=== PATIENT | male | born 1965 | race Caucasian/White ===

== ENCOUNTER 2017-11-30 11:06 | Observation (INO) | payer OTHER, SELFPAY ==
[2017-11-30] VITALS (9 sets, daily range): BP systolic 134–188; BP diastolic 68–101; PULSE 6–70; RESP 13–17; TEMP 36.7–37.2; O2SAT 97–100; BMI 27.2; BMI 26.7
--- NOTE | 2017-11-30 11:24 | NURSING ---
NO OLD EKGS
[2017-11-30] MEDS: Aspirin 81 MG TAB.CHEW 324 MG PO (11:28)
[2017-11-30] MEDS: 0.9% Normal Saline 1,000 ML 150 ML IV ×3 (11:30→22:25)
[2017-11-30 11:39] LABS: Absolute Lymphocyte Count 1.55 X10^3/ul (0.83-4.51); Absolute Neutrophil Count 6.9 X10^3/uL (2.0-7.7); Basophil# 0.03 X10^3/uL; Basophil% 0.3 % (0-1); Eosinophil# 0.22 X10^3/uL; Eosinophils% 2.3 % (0-5); Hematocrit 45.6 % (40-54); Hemoglobin 15.2 g/dl (13.0-16.5); Lymphocyte # 1.55 X10^3/ul (4.0); Lymphocyte % 16.5 % (19-41); Mean Corp Hgb Conc 33.3 g/gl (32-36); Mean Corpuscular Hgb 29.8 pg (27.0-32.0); Mean Corpuscular Volume 89.4 fL (80-94); Mean Platelet Vol. 9.4 fl (6.2-12.0); Monocyte# 0.64 X10^3/uL; Monocyte% 6.8 % (0-10); Neutrophil # 6.91 X10^3/uL (2.7-7.7); Neutrophil % 73.9 % (47-70); Platelet Count 227 K/mm3 (150-450); RBC Distribution Width CV 12.6 % (11.6-14.6); RBC Distribution Width SD 40.6 fl (35.1-43.9); White Blood Count 9.4 K/mm3 (4.4-11.0)
[2017-11-30 11:40] LABS: POSITIVE COUNT NO; POSITIVE DIFFERENTIAL NO; POSITIVE MORPHOLOGY NO
[2017-11-30 11:58] LABS: Anion Gap 5 (5-15); BUN 13 mg/dL (7-18); BUN/Creat Ratio 13.2 RATIO (10-20); Calcium,Total 8.8 mg/dL (8.5-10.1); Chloride 104 mmol/L (98-107); Creatinine, Serum 0.99 mg/dL (0.70-1.30); EST Glomerular Filtration Rate 85 mL/min (>60); Est Glom Filt Rate - Afr Amer 102 mL/min (>60); Estimated Creatinine Clearance 107.16 ml/min; Glucose 124 mg/dL (74-106); Sodium Level 139 mmol/L (136-145)
--- NOTE | 2017-11-30 12:30 | ED.VISSUMM ---
- ER Visit Summary Date of Service: 11/30/17 Chief Complaint: [Palpitations and chest discomfort] History of Present Illness: The patient is a 52 M [presents the emergency department complaint of palpitations that started around 8 AM while at work today. Patient states that he was just walking when he suddenly had the onset of severe fatigue and developed cold sweats and felt short of breath. Patient had a mild heaviness/fullness in his chest. Symptoms lasted about 30 seconds or so and then resolved. Patient then had another episode of shortness of breath after picking up a battery and starting to walk. Patient has not had symptoms like this before. He currently denies any chest pain. He denies nausea or vomiting. He denies any radiation of the chest discomfort.] Physical Examination: [HEENT-PERRLA, EOMI. Cranial nerves II through XII grossly intact. TMs clear. Mucous membranes moist. No adenopathy. Cardiovascular-regular rate and rhythm without murmur or ectopy Lungs-clear to auscultation, chest wall stable without crepitus or subcu emphysema Abdomen-normoactive bowel sounds, soft, nontender, no rebound or rigidity, no peritoneal signs. Extremities-intact ?4, normal range of motion, normal pulses, atraumatic] Test Results: [EKG obtained on arrival showed a sinus rhythm with a ventricular rate of 61 bpm with no acute ST segment changes. CBC with differential is normal. Chemistries were normal. Troponin was less than 0.015. Chest x-ray showed nothing acute.] Emergency Department Course and Treatment: [Patient received aspirin in the emergency department] Treatment Plan: [Admit for further workup and evaluation] Disposition: [Admit] Impression: [Chest pain-rule out acute coronary syndrome Palpitations] This note was generated with [employer] dictation software. It may contain incorrect words, spelling, and punctuation that were not noted in review of the chart prior to signing ED Disposition - Plan for ED Patient: Chief Complaint: Palpitations Referrals: Mulugeta Tom DO [Primary Care Provider] -
--- NOTE | 2017-11-30 12:54 | NURSING ---
[address]agan obs
--- NOTE | 2017-11-30 13:15 | PCM.HP.STD ---
Problem List (1) Chest pain Status: Acute (2) Essential (primary) hypertension Status: Chronic (3) Depression Status: Chronic History of Present Illness Date of Admission: 11/30/17 Chief Complaint: Chest pain The patient is a 52 year old M past medical history cigar of hypertension currently not on any antihypertensives who presented with chest discomfort. Patient symptoms started at [facility] when he felt exhausted and fatigue. He rested and felt some relief. He had a recurrence at this time his fatigue was associated with episodes of heart fluttering. He later developed chest discomfort in the left upper chest broke out into a cold sweat and felt faint. He called the squad and was brought to the emergency department. Initial set of cardiac enzymes obtained in the ED came back negative. Patient was admitted to monitored bed for further management. Past Medical History Past Medical History (Chronic Problems): Chronic Problems Essential (primary) hypertension (Chronic) Depression (Chronic) Allergies ibuprofen Allergy (Verified 11/30/17 11:08) Angioedema Home Medications: Ambulatory Orders Medication Instructions Recorded Diclofenac [Voltaren] 100 mg PO DAILY 11/30/17 Escitalopram Oxalate [Lexapro] 10 mg PO DAILY 11/30/17 Smoking Status: Never smoker - *Family History Paternal History Items: Heart Disease Review of Systems Constitutional: Reports: Fatigue. Denies: Anorexia, Chills, Fever, Night Sweats, Weight Change HEENT: Denies: Head Aches, Sinus Congestion, Sinus Drainage Cardiovascular: Reports: Chest Pain, Palpitations. Denies: Orthopnea, Paroxysmal Noc. Dyspnea Respiratory: Denies: Cough, Shortness of breath at rest, Shortness of breath upon exertion, Sputum production Gastrointestinal: Denies: Abdominal Pain, Hematemesis, Hematochezia, Nausea, Melena, Vomiting Genitourinary: Denies: Dysuria, Frequency, Hematuria, Urgency Musculoskeletal: Denies: Joint Pain, Joint Tenderness Skin: Denies: Rash Neurological: Denies: Focal weakness, Numbness, Tingling Psychiatric: Denies: Homicidal Ideations, Suicidal Ideations Hematologic/ Lymphatic: Denies: Easy Bruising, Easy Bleeding VTE Information - Inpt Only VTE Present on Admission: No VTE Mechan Device Prophylaxis: Knee High EMERSON Hose VTE Pharm Prophylaxis ordered?: Yes Patient Problems: Active and Suspected Problems Chest pain (Acute) Objective: GENERAL: cooperative and in no apparent distress. HEENT: Clear conjunctiva, moist oral mucosa NECK; supple, normal thyroid, no distended JVD. CHEST: Clear to auscultation bilaterally, HEART: Regular S1 S2, no audible murmurs ABDOMEN: soft, non-tender, normoactive bowel sounds, RECTAL: deferred EXTREMITIES: No edema, no clubbing, no cyanosis. MANAGER IT SECURITY: Awake; no lateralizing signs. SKIN: No Rash - Physical Exam Vital Signs Temp Pulse Resp BP Pulse Ox 99.0 F 53 L 15 148/96 H 99 11/30/17 11:08 11/30/17 12:45 11/30/17 12:45 11/30/17 12:45 11/30/17 12:45 Oxygen Flow Rate (L/min) 2 Oxygen Delivery Method Nasal Cannula Weight: 101.5 kg Body Mass Index (BMI) 27.2 Laboratory Tests Past 24 Hrs 11/30/17 11/30/17 11:20 11:20 WBC 9.4 RBC 5.10 Hgb 15.2 Hct 45.6 MCV 89.4 MCH 29.8 MCHC 33.3 RDW 12.6 RDW Differential 40.6 Plt Count 227 MPV 9.4 Immature Gran % (Auto) 0.200 Neut % (Auto) 73.9 H Lymph % (Auto) 16.5 L Wilkes % (Auto) 6.8 Eos % (Auto) 2.3 Baso % (Auto) 0.3 Absolute Neuts (auto) 6.9 Absolute Lymphs (auto) 1.55 Total Counted Not Reportable Sodium 139 Potassium 4.0 Chloride 104 Carbon Dioxide 30.0 Anion Gap 5 BUN 13 Creatinine 0.99 Estim Creat Clear Calc 107.16 Est GFR (MDRD) Af Amer 102 Est GFR (MDRD) Non-Af 85 BUN/Creatinine Ratio 13.2 Glucose 124 H Calcium 8.8 Troponin I < 0.015 Assessment/Plan All Active Problems Chest pain (Acute) Patient is a 52-year-old gentleman presenting with atypical chest pain 1. Chest Pain: Placed on a monitored bed; Plan is to rule out for Myocardial infarction with serial cardiac enzymes and EKGs. If negative, rule out Myocardial Ischemia with nuclear medicine stress test. 2. Depression patient is on SSRI 3. Hypertension currently not on any antiplatelet medications however patient systolic blood pressure upon admission was greater than 180 plan is to initiate antihypertensive medications prior to discharge 4. DVT prophylaxis SC Lovenox Code Visit OBSV E&M: 88743 Initial observation care L3
[2017-11-30] MEDS: amLODIPine 10 MG Tablet PO (17:07)
[2017-11-30] MEDS: 0.9% NaCl Peripheral Flush Adult/Peds IV (22:25)
[2017-12-01 03:00] VITALS: PULSE 50
[2017-12-01 04:30] VITALS: BP 122/71; PULSE 53; RESP 16; TEMP 36.7; O2SAT 96
[2017-12-01 04:39] LABS: Partial Thromboplast Time 25.2 Seconds (24.1-36.2); Prothrombin Time (Protime)PT. 12.8 SECONDS (11.7-14.9)
[2017-12-01 04:41] LABS: Hematocrit 42.9 % (40-54); Hemoglobin 14.9 g/dl (13.0-16.5); Mean Corp Hgb Conc 34.7 g/gl (32-36); Mean Corpuscular Hgb 30.9 pg (27.0-32.0); Mean Platelet Vol. 9.3 fl (6.2-12.0); Platelet Count 233 K/mm3 (150-450); RBC Distribution Width CV 12.7 % (11.6-14.6); RBC Distribution Width SD 40.9 fl (35.1-43.9); Red Blood Count 4.82 M/mm3 (4.6-6.2); White Blood Count 8.7 K/mm3 (4.4-11.0)
[2017-12-01 04:42] LABS: Scan Indicated on CBC? Y/N NO
[2017-12-01 04:50] LABS: Anion Gap 8 (5-15); BUN 13 mg/dL (7-18); BUN/Creat Ratio 13.9 RATIO (10-20); Calcium,Total 8.1 mg/dL (8.5-10.1); Chloride 109 mmol/L (98-107); Creatinine, Serum 0.94 mg/dL (0.70-1.30); EST Glomerular Filtration Rate 90 mL/min (>60); Est Glom Filt Rate - Afr Amer 109 mL/min (>60); Estimated Creatinine Clearance 112.86 ml/min; Glucose 112 mg/dL (74-106); Potassium 4.2 mmol/L (3.5-5.1); Sodium Level 143 mmol/L (136-145)
[2017-12-01] MEDS: 0.9% Normal Saline 1,000 ML 150 ML IV (05:07)
[2017-12-01] MEDS: Aspirin E.C. 81 MG Tablet PO (05:07)
--- NOTE | 2017-12-01 05:55 | NURSING ---
All charting completed by SN Christian reviewed by this RN. This RN agrees with documentation - 12/01
[2017-12-01 06:11] VITALS: PULSE 56
[2017-12-01 10:30] VITALS: BP 142/72; PULSE 61; RESP 16; TEMP 36.6; O2SAT 98
[2017-12-01] MEDS: Escitalopram Oxalate 10 MG Tablet PO (10:46)
[2017-12-01] MEDS: amLODIPine 10 MG Tablet PO (10:47)
[2017-12-01 11:53] VITALS: PULSE 50
--- NOTE | 2017-12-01 13:01 | STRESSREP ---
Stress Test Report Date: 12/01/2017 Procedure: Exercise tolerance test/imaging study Indications: Chest pain Consent: Per the patient Procedure: The patient exercised on a Gavino protocol for 11 minutes 25 seconds completing Stage III and 2 minutes 25 seconds of Stage IV achieving a peak heart rate of 155 bpm (92 % predicted maximal heart rate) with a peak blood pressure 182/64 mmHg and a peak MET capacity of 13 METs. The baseline ECG demonstrated sinus bradycardia. The peak exercise ECG demonstrated somatic/motion artifact with no obvious ECG changes. There was a rare PVC/ventricular couplet during exercise. The functional capacity was considered good. There was vague chest discomfort during exercise with spontaneous resolution in recovery. The examination was discontinued secondary to dyspnea and leg discomfort. Impression: 1. Technically adequate (percent predicted maximal heart rate greater than 85%) exercise tolerance test 2. Peak exercise ECG somatic/motion artifact with no obvious ECG changes 3. There was a rare PVC/ventricular couplet during exercise. 4. Nuclear images pending Myocardial perfusion imaging study: Technique: The patient was injected with 10.3 mCi of technetium 99m Cardiolite and subsequently rest SPECT Cardiolite nuclear imaging was obtained in the horizontal long, vertical long, and short axis views. The patient exercised on a Gavino protocol for 11 minutes 25 seconds completing Stage III and 2 minutes 25 seconds of Stage IV achieving a peak heart rate of 155 bpm (92 % predicted maximal heart rate) with a peak blood pressure 182/64 mmHg and a peak MET capacity of 13 METs. The patient was injected with 43.9 mCi of technetium 99m Cardiolite and subsequently stress SPECT Cardiolite nuclear imaging was obtained in the horizontal long, vertical long, and short axis views. A gated Cardiolite study at peak stress was obtained. Interpretation: Rest and stress SPECT Cardiolite nuclear imaging status post realignment, normalization, and attenuation correction, demonstrates the appearance of extra cardiac/gastrointestinal tracer uptake near the inferior segments being more prominent at rest as opposed to stress and otherwise appearing to demonstrate relative uniform tracer uptake and myocardial perfusion appearing within normal limits. There is end systolic thickening and brightening. The gated Cardiolite study demonstrates myocardial thickening and inward wall motion. The reported LVEF is 66 %. Impression: 1. Rest and stress SPECT Cardiolite nuclear imaging demonstrate relative uniform tracer uptake and myocardial perfusion appearing within normal limits. 2. The gated Cardiolite study reports an LVEF of 66 %. This note was generated with [employer] dictation software. It may contain incorrect words, spelling, and punctuation that were not noted in checking the note before signing.
--- NOTE | 2017-12-01 13:24 | PCM.DC ---
- Discharge Diagnoses Current Active Problems: Current Active and Chronic Problems Chest pain (Acute) Essential (primary) hypertension (Chronic) Depression (Chronic) You will use the following diet at home:: No restrictions Discharge Activity: Return to Normal Activity Instructions: ED Chest Pain NonCardiac Allergies/Adverse Reactions: Allergies ibuprofen Allergy (Verified 11/30/17 11:08) Angioedema Medications to take at Discharge Diclofenac [Voltaren] 100 mg PO DAILY 11/30/17 Escitalopram Oxalate [Lexapro] 10 mg PO DAILY 11/30/17 Amlodipine [Norvasc] 10 mg PO DAILY #60 tab 12/01/17 The following prescriptions were given: Amlodipine [Norvasc] 10 mg PO DAILY #60 tab Primary Care Physician: Mulugeta Tom DO [Primary Care Provider] - Please follow up with your Primary Care Physician in: in 5-7 days Test Results: Test results from this visit will be discussed in further detail at your follow-up appointment, if applicable. Proposed Discharge Date: 12/01/17
--- NOTE | 2017-12-01 13:28 | PCM.DC.SUM ---
Discharge Date and Diagnosis Date of Admission: 11/30/17 Date of Discharge: 12/01/17 - Primary Discharge Diagnosis Active and Suspected Problems Chest pain (Acute) - Secondary Discharge Diagnosis Chronic Problems Essential (primary) hypertension (Chronic) Depression (Chronic) Hospital Course and Treatment Imaging Results: 12/01/17 05:55 Nuclear Stress Test - Treadmil [NM] AM (NON MEDS) Summary of Care Provided: Patient is a 52-year-old gentleman presenting with atypical chest pain 1. Chest Pain: Placed on a monitored bed; rule out NC with serial cardiac enzymes subsequently underwent a nuclear stress test which is negative for stress-induced ischemia 2. Depression patient is on SSRI 3. Hypertension currently not on any antiplatelet medications however patient systolic blood pressure upon admission was greater than 180 patient was started on amlodipine prescription was written on discharge. He was instructed to follow-up with his primary care physician for subsequent care 4. DVT prophylaxis SC Lovenox Discharge Diet: No Restrictions Discharge Activity: Return to Normal Activity Home Medications: Medications to take at Discharge Diclofenac [Voltaren] 100 mg PO DAILY 11/30/17 Escitalopram Oxalate [Lexapro] 10 mg PO DAILY 11/30/17 Amlodipine [Norvasc] 10 mg PO DAILY #60 tab 12/01/17 Following Prescrptions Were Given to Patient: Amlodipine [Norvasc] 10 mg PO DAILY #60 tab Primary Care Physician: Mulugeta Tom DO [Primary Care Provider] - Please follow up with your Primary Care Physician in: in 5-7 days Patient Instructions: ED Chest Pain NonCardiac Disposition: Home Minutes spent on discharge:: 35 Patient Condition:: Stable Medical Necessity - Tobacco Use Smoking Status: Never smoker Tobacco Use: Non-smoker Meaningful Use Info Meaningful Use Diagnoses (Choose all that apply): None applicable Code Visit OBSV E&M: 74768 Observation care discharge
== END 2017-12-01 13:24 | disposition home or self-care (01) ==
LOC: ED 12:02 → PCU 12:48
PROVIDERS: Admitting Provider Internal Medicine; Emergency Provider Emergency Medicine; Family Provider Preventive Medicine Occupational Medicine; PCP Preventive Medicine Occupational Medicine; Visit Provider Internal Medicine
DX: R07.89 Other chest pain (principal); R00.2 Palpitations; R06.02 Shortness of breath; Z79.899 Other long term (current) drug therapy; I10 Essential (primary) hypertension; F32.9 Major depressive disorder, single episode, unspecified; R53.83 Other fatigue; I08.1 Rheumatic disorders of both mitral and tricuspid valves
CPT/HCPCS: 36415; 71045; 78452; 80048; 83735; 84484; 85025; 85027; 85610; 85730; 93005; 93017; 93306; 96360; 96361; 99218; 99283; A9500; J7030; Q9957; A4216; C8929; G0378

== ENCOUNTER → 2024-06-25 | Outpatient (CLI) | payer OTHER, SELFPAY ==
--- NOTE | 2024-06-25 09:30 | MRI_ITS ---
PROCEDURE: SPINE LUMBAR (ROUTINE) (MRISPL), 06/25/2024 REASON FOR EXAM: LUMBAR DEGENERATIVE DISC DISEASE TECHNIQUE: Multisequence multiplanar MR of the lumbar spine was performed without IV contrast. COMPARISON: None FINDINGS: Vertebral body heights are preserved. Degenerative type marrow signal changes are greatest at L4-L5. Multifocal Schmorl's nodes. Mild grade 1 likely degenerative retrolisthesis at L1-L2 and L2-L3. Conus medullaris terminates normally at the L1 level. Crowding of the cauda equina related to the below stenoses. L1-2: Anterolisthesis as above with disc uncovering. Diffuse disc bulging and rqogpnrx-ot-desnrv loss of disc height. Mild/moderate bilateral foraminal stenosis. Mild/moderate focal spinal canal stenosis with incomplete effacement of CSF. Mild narrowing of the bilateral lateral recesses. L2-3: Mild loss of disc height with prominent diffuse disc bulging and superimposed left foraminal and lateral disc protrusion. Mild bilateral foraminal stenoses.. Narrowing of the bilateral lateral recesses. Mild facet arthropathy. Qxeefhsw-mo-ymlyat focal spinal canal stenosis with virtually complete effacement of CSF. L3-4: Diffuse disc bulging, asymmetric to the left and greatest in the left foraminal and lateral locations. Mild/moderate left and mild right foraminal stenosis. Ligamentum flavum hypertrophy. Moderate focal spinal canal stenosis with incomplete effacement of CSF. L4-5: Zlfpyakt-vy-lejrxk loss of disc height with diffuse disc bulging. Facet arthropathy. Mdyuqfms-rv-sszfcx right and mild left foraminal stenosis. Effacement of the right lateral recess. Moderate focal spinal canal stenosis with incomplete effacement of CSF. Ligamentum flavum hypertrophy. L5-S1: Nqklmboj-jb-fzmyrq loss of disc height with diffuse disc bulging slightly asymmetric to the left. Facet arthropathy. Moderate bilateral foraminal stenoses. Mild focal spinal canal stenosis. Other: Partially imaged presumed right renal cyst, incompletely evaluated.. MRI/Spine Lumbar (Routine) IMPRESSION: 1. Multilevel spondylosis as detailed. Variable spinal canal stenoses up to mo derate/severe at L2-L3. Variable foraminal stenoses, up to rtaztwho-fr-odiuxe on the right at L4-L5. 2. Additional description as above. Reading Location: [id number]
== END | disposition home or self-care (01) ==
LOC: MRI 08:57
PROVIDERS: PCP Preventive Medicine Occupational Medicine; Referring Provider Nurse Practitioner; Visit Provider Nurse Practitioner
DX: M51.369 Other intervertebral disc degeneration, lumbar region without mention of lumbar back pain or lower extremity pain (principal)
CPT/HCPCS: 72148